=== PATIENT | male | born 1990 | race Two or more races ===

== ENCOUNTER 2017-07-15 01:50 | Emergency (ER) | payer MEDICAID ==
[2017-07-15 02:50] LABS: PLATELET COUNT 328 x10^3mcL (130-400); RED CELL DISTRIBUTION WIDTH 12.3 % (11.5-14.5)
[2017-07-15 02:51] LABS: BASOPHIL % 4.4 % (0-2)
[2017-07-15 02:56] LABS: CALCIUM 8.5 mg/dL (8.5-10.1); CARBON DIOXIDE 30.8 mmol/L (21-32); CHLORIDE SERUM 105 mmol/L (98-107); CREATININE SERUM 0.9 mg/dL (0.7-1.3); GFR1 > 60 mL/min; GLUCOSE SERUM 99 mg/dL (74-106); POTASSIUM SERUM 4.2 mmol/L (3.5-5.1); SODIUM SERUM 140 mmol/L (136-145)
[2017-07-15 03:02] LABS: ALBUMIN 3.9 g/dL (3.4-5.0); ALKALINE PHOSPHATASE 63 U/L (46-116); ALT/SGPT 23 U/L (16-63); AST/SGOT 16 U/L (15-37); BILIRUBIN TOTAL 0.3 mg/dL (0.20-1.00); TOTAL PROTEIN, SERUM 7.5 g/dL (6.4-8.2)
[2017-07-15 03:10] LABS: T3 TOTAL 1.28 ng/mL
[2017-07-15 03:14] LABS: FREE T4 0.97 ng/dL (0.76-1.46); FREE THYROXINE INDEX 3.4 ug/dL (1.4-4.5); T4(THYROXINE) 9.1 ug/dL (4.7-13.3)
[2017-07-15 03:45] LABS: AMPHETAMINE QUAL UR NONE DETECTED (NEG <=1000)
[2017-07-15 04:42] VITALS: BP 108/68
== END 2017-07-15 04:42 | disposition home or self-care (01) ==
LOC: ED 01:50
PROVIDERS: Emergency Medicine
DX: R00.2 Palpitations (principal); J45.909 Unspecified asthma, uncomplicated; R20.0 Anesthesia of skin; M79.601 Pain in right arm
CPT/HCPCS: 83880; 84439; J7030; Q0092